=== PATIENT | female | born 1995 | race Caucasian/White ===

== ENCOUNTER 2020-03-10 16:06 | Outpatient (CLI) | payer OTHER, SELFPAY ==
--- NOTE | 2020-03-10 | XRR_ITS ---
PROCEDURE INFORMATION: Exam: XR Chest, 2 Views Exam date and time: 03/10/2020 4:26 PM Age: 25 years old Clinical indication: Patient HX: Cough since October; Additional info: Chronic cough TECHNIQUE: Imaging protocol: XR of the chest Views: 2 views. COMPARISON: No relevant prior studies available. FINDINGS: Lungs: Unremarkable. No consolidation. Pleural space: Unremarkable. No pleural effusion. No pneumothorax. Heart/Mediastinum: Unremarkable. No cardiomegaly. Bones/joints: Unremarkable. XR/XR chest 2V* [id number] IMPRESSION: No acute findings.
== END 2020-03-10 16:07 | disposition home or self-care (01) ==
LOC: RAD 16:10
PROVIDERS: PCP Family Medicine; Visit Provider Family Medicine
DX: R05 Cough (principal)
CPT/HCPCS: 71046

== ENCOUNTER 2020-03-18 10:51 | Outpatient (CLI) | payer OTHER, SELFPAY ==
[2020-03-18 11:42] LABS: Basophils # 0.1 10^3/uL (0.0-0.1); Basophils % 0.8 %; Eosinophils # 0.3 10^3/uL (0.0-0.8); Eosinophils % 4.8 %; Hematocrit 42.6 % (37.0-47.0); Hemoglobin 14.2 g/dL (11.5-15.3); Lymphocytes # 2.2 10^3/uL (0.8-4.8); Lymphocytes % 33.4 %; Mean Corpuscular HGB Conc 33.3 g/dL (30.0-36.0); Mean Corpuscular Hemoglobin 32.1 pg (28.0-34.0); Mean Corpuscular Volume 96.4 fL (81-99); Monocytes # 0.4 10^3/uL (0.2-0.9); Monocytes % 5.5 %; Neutrophils # 3.6 10^3/uL (1.8-7.7); Neutrophils % 55.2 %; Nucleated Red Blood Cells % 0 %; Platelet Count 225 10^3/cmm (130-400); Red Blood Count 4.42 10^6/uL (4.1-5.3); Red Cell Distribution Width 11.5 % (12.1-15.1); White Blood Count 6.5 10^3/uL (4.0-10.0)
[2020-03-19 18:11] LABS: Alternaria Alternata (M6) Ige <0.10 kU/L; Alternaria Class 0; Cat Dander (E1) Ige 8.05 kU/L; Cat Dander Class 3; Common Ragweed (Short) (W1) Ig 1.56 kU/L; D. Farinae Class 2; Dermatophagoides Class 1; Dermatophagoides Farinae (D2) 0.72 kU/L; Dermatophagoides Pteronyssinus 0.62 kU/L; Dog Dander (E5) Ige 7.49 kU/L; Dog Dander Class 3; Elm (T8) Ige <0.10 kU/L; Elm Class 0; English Plantain (W9) Ige 2.04 kU/L; English Plantain Class 2; House Dust (Greer) (H1) Ige 3.99 kU/L; House Dust Class 3; Immunoglobulin E 89 kU/L (<OR=114); Lamb'S Quarters (Goose Foot) <0.10 kU/L; Lamb'S Quarters Class 0; Maple Class 0/1; Mucor Racemosus Class 0; Oak Class 1; Penicillium Class 0; Penicillium Notatum (M1) Ige <0.10 kU/L; Ragweeed Class 2; Rough Marsh Elder (W16) Ige 0.22 kU/L; Rough Marsh Elder Class 0/1
[2020-03-19 18:41] LABS: Immunoglobulin E 97 kU/L (<OR=114)
[2020-03-22 17:27] LABS: Aspergillus Fumigatus, Igg Ab, 27.2 mg/L (<=102)
[2020-03-22 17:57] LABS: Bermuda Class 0/1; Bermuda Grass (G2) Ige 0.11 kU/L; Johnson Grass (G10) Ige 0.12 kU/L; Johnson Grass Cl 0/1; June Grass Class 0; June Grass(Kentucky Blue) (G8) <0.10 kU/L; Meadow Fescue (G4) Ige <0.10 kU/L; Meadow Fescue Class 0; Orchard Grass (Cocksfoot) (G3) <0.10 kU/L; Perennial Rye Grass (G5) Ige <0.10 kU/L; Perennial Rye Grass Class 0; Sweet Vernal Class 0/1; Sweet Vernal Grass (G1) Ige 0.12 kU/L; Timothy Grass (G6) Ige <0.10 kU/L; Timothy Grass Class 0
== END 2020-03-18 10:52 | disposition home or self-care (01) ==
LOC: LAB 10:53
PROVIDERS: PCP Family Medicine; Visit Provider Internal Medicine Critical Care Medicine
DX: R06.02 Shortness of breath (principal); J45.909 Unspecified asthma, uncomplicated
CPT/HCPCS: 36415; 82785; 85025; 86003

== ENCOUNTER 2020-05-17 10:39 | Outpatient (CLI) | payer OTHER, SELFPAY ==
--- NOTE | 2020-05-17 12:02 | PFTS_ITS ---
Date of Study:05/17/20 Date of Dictation: MECHANICS: Forced vital capacity (FVC) is normal. Forced expiratory volume in one second (FEV1) is normal. FEV1/FVC is normal. FLOW VOLUME LOOP: Normal. LUNG VOLUMES: Total lung capacity (TLC) is normal. Residual volume (RV) is normal. DIFFUSING CAPACITY FOR CARBON MONOXIDE: Increased. INTERPRETATION: The spirometry is normal. Lung volumes are normal. Gas exchange (DLCO) is elevated which could be seen in patients with asthma. MTDD
== END 2020-05-17 10:40 | disposition home or self-care (01) ==
LOC: RT 10:40
PROVIDERS: PCP Family Medicine; Visit Provider Internal Medicine Critical Care Medicine
DX: J45.909 Unspecified asthma, uncomplicated (principal)
CPT/HCPCS: 94010; 94726; 94729

== ENCOUNTER 2020-07-29 13:29 | Outpatient (CLI) | payer OTHER, SELFPAY ==
--- NOTE | 2020-07-29 13:38 | USCV_ITS ---
Miladis Vasquez Age: 25 Gender: F : 1995 Exam Date: 07/29/2020 13:58 Ordering Phys: Ger Santiago MD Technologist: Janeth Marte Exam Location: [facility] [place] Indication: swelling at ankle HISTORY: Lower extremity swelling. PROCEDURES: Venous duplex imaging was performed in only the left lower extremity. The following venous structures were evaluated: common femoral vein, profunda vein, proximal portion of the greater saphenous vein, superficial femoral vein, and the popliteal vein. In addition, the posterior tibial and peroneal trunk were evaluated. Serial compression, augmentation maneuvers, and spectral Doppler flow evaluation were performed. FINDINGS: Normal 2-D Doppler and augmentation and compressibility throughout the lower extremity venous structures. Additional imaging through the proximal calf veins also reveals no thrombus. Limited evaluation of the greater saphenous vein is patent with no thrombus.. CONCLUSIONS No DVT left lower extremity. Dr. Debra Fuentes DO (Electronically Signed) Final Date: 29 July 2020 15:38 S
== END 2020-07-29 13:30 | disposition home or self-care (01) ==
LOC: RAD 13:31
PROVIDERS: PCP Family Medicine; Visit Provider Family Medicine
DX: M79.89 Other specified soft tissue disorders (principal)
CPT/HCPCS: 93971

== ENCOUNTER → 2020-12-04 15:37 | Outpatient (BNVA) | payer OTHER, SELFPAY | PROVIDERS: PCP Family Medicine; Visit Provider Nurse Practitioner Family | DX: H93.90 Unspecified disorder of ear, unspecified ear (principal); J30.9 Allergic rhinitis, unspecified | CPT/HCPCS: 87071; 87880 ==

== ENCOUNTER → 2022-07-25 15:56 | Outpatient (BNVA) | payer OTHER, SELFPAY | PROVIDERS: PCP Family Medicine; Visit Provider Family Medicine | DX: N92.1 Excessive and frequent menstruation with irregular cycle (principal); R10.2 Pelvic and perineal pain; Z51.81 Encounter for therapeutic drug level monitoring | CPT/HCPCS: 80053; 84439; 84443; 85025 ==

== ENCOUNTER → 2022-08-18 07:54 | Outpatient (BNVA) | payer OTHER, SELFPAY | PROVIDERS: PCP Family Medicine; Visit Provider Family Medicine | DX: N92.1 Excessive and frequent menstruation with irregular cycle (principal); R10.2 Pelvic and perineal pain | CPT/HCPCS: 76830; 76856 ==

== ENCOUNTER 2022-12-07 19:20 | Emergency (ER) | payer OTHER, SELFPAY ==
[2022-12-07 19:28] VITALS: BP 121/83; PULSE 112; RESP 14; TEMP 36.9; O2SAT 91
[2022-12-07 19:31] VITALS: BP 128/87; RESP 24; O2SAT 91
--- NOTE | 2022-12-07 19:34 | ED_ITS ---
HPI - SOB/Dyspnea General: Chief Complaint: Shortness of Breath/Dyspnea Stated Complaint: sob Time Seen by Provider: 12/07/22 19:33 History of Present Illness: HPI Narrative: 27-year-old female comes in today with worsening symptoms of asthma. Patient has been having increasing spells over the last [address] Santiago and was started on Flovent and just started it this morning 2 puffs. This evening patient had worsening difficulty catching her breath that her albuterol inhaler was not helpful. Patient appears nontoxic. Patient does have increased effort with breathing. Patient is noted to have tripoding. Patient has no other chronic medical problems except related to abnormal periods. Associated symptoms: Deny chest pain, fever(s), nausea or vomiting Review of Systems Const: Denies: fever(s) ENMT: Denies: mouth pain Card: Denies: chest pain Resp: Reports: dyspnea and wheezing GI: Denies: nausea, vomiting, diarrhea or constipation Musc: Denies: neck pain Skin/Breast: Denies: rash PFSH ED PFSH: Medical History Asthma Surgical History H/O colonoscopy Hx of laparoscopy Family History Other CAD (coronary artery disease) Diabetes Social History Smoking and tobacco status: never smoked Alcohol intake: current Alcohol intake frequency: holidays/special occasions only Lives independently: Yes Household members: spouse Marital status: Current occupational status: employed Current occupation: Teacher Current occupational exposures/hazards: No Current gender identity: Female Physical Exam Const: COMMON NORMALS: alert HENMT: COMMON NORMALS: normocephalic and Normal external nose present HEAD & SCALP: normocephalic NOSE: Normal external nose present MOUTH: Normal oral and palatal mucosa present Neck/C-Spine: COMMON NORMALS: full ROM Resp: COMMON NORMALS: normal respiratory effort and clear to auscultation bilaterally AUSCULTATION: clear to auscultation bilaterally Cardio: COMMON NORMALS: regular rate and regular rhythm RATE: regular rate RHYTHM: regular rhythm GI: COMMON NORMALS: non-tender Back/Pelvis: COMMON NORMALS: thoracic and lumbar spine normal to inspection Extremity: COMMON NORMALS: normal to inspection Neuro: SENSORIUM/ORIENTATION: Yes alert Skin: COMMON NORMALS: turgor normal GENERAL SKIN EXAM: turgor normal Course ED course: 2102, patient is much improved and would like to go home. Lungs continue to have some wheezing but better air movement throughout. Patient is able to speak in full sentences. Vital Signs: Vital signs: Vital Signs Temperature 98.4 F 12/07/22 19:28 Pulse Rate 112 H 12/07/22 20:10 Respiratory Rate 20 H 12/07/22 20:10 Blood Pressure 128/87 12/07/22 19:31 Pulse Oximetry 94 12/07/22 20:10 Oxygen Delivery Me thod 12/07/22 20:10 Oxygen Flow Rate 2 12/07/22 20:08 MDM - SOB/Dyspnea Medical Decision Making 27-year-old female comes in today for complaints of increasing shortness of breath and worsening asthma. On exam lungs were decreased aeration throughout with wheezing. Skin was warm and dry. No fever. Patient reports that last 2 to 3 months she has had increasing shortness of breath. No edema is noted in the extremities. Vital signs are normal. Differential diagnosis includes not limited to exacerbation of asthma, respiratory failure, pneumothorax. Chest x- ray was unremarkable. For asthma exacerbation with 500 mL of saline, 2 g of magnesium sulfate, 125 of Solu-Medrol, 5 mg of albuterol inhaled, and 0.5 mg of ipratropium. Patient had significant improvement air movement throughout lung gil. Patient be continued on oral prednisone along with her routine medications. Patient reported understanding of care plan and need for follow-up or return to the ER. Lab Data Labs/Radiology: Radiology Impressions Chest X-Ray 12/07/22 19:38 IMPRESSION: No acute findings. Discharge Plan Discharge Patient Disposition: Home Clinical Impression: Asthma with exacerbation Qualifiers: Asthma severity: moderate Asthma persistence: persistent Qualified Code(s): J45.41 - Moderate persistent asthma with (acute) exacerbation Condition: Stable Prescriptions: New prednisone 20 mg tablet 60 mg PO DAILY 5 Days Qty: 30 0RF No Action epinephrine 0.3 mg/0.3 mL syringe 0.3 mg IM Q10M PRN Rx Instructions: for 2 doses fluticasone propionate [Flonase Allergy Relief] 50 mcg/actuation spray,suspension 1 spray INTRANASAL BID 30 Days Qty: 16 3RF Rx Instructions: administer into each nostril azelastine 137 mcg (0.1 %) aerosol,spray 1 spray intranasal BID 30 Days Qty: 30 6RF Rx Instructions: administer into each nostril fluticasone propionate [Flovent HFA] 110 mcg/actuation HFA aerosol inhaler 2 puff inhalation BID Qty: 12 3RF albuterol sulfate [ProAir HFA] 90 mcg/actuation HFA aerosol inhaler 2 puff INHALATION Q6H PRN (Reason: shortness of breath or wheezing) Qty: 8.5 3RF Discharge Orders: Discharge ED (Routine); Ordered 12/07/22 Ordered By: Adis Lieberman Referrals: Ger Santiago MD [Primary Care Provider] - Discharge Diet: Usual diet Discharge Activity: Increase activity as tolerated Patient Instructions: Asthma (ED) Activity Restrictions/Additional Instructions: Home and rest. Drink plenty of fluids. Take medication, 60 mg prednisone daily for the next 5 days. Follow-up with primary care in 3 to 5 days for recheck. Return to emergency department for worsening symptoms. Continue with inhalers, nebulizer solution as directed. Stand Alone Forms: Work/School Release Coding Level of Care Code ED Cash Register Operator for [employer]
--- NOTE | 2022-12-07 19:38 | XRR_ITS ---
PROCEDURE INFORMATION: Exam: XR Chest Exam date and time: 12/07/2022 7:43 PM Age: 27 years old Clinical indication: Cough and shortness of breath and wheezing; Additional info: Asthma TECHNIQUE: Imaging protocol: Radiologic exam of the chest. Views: 1 view. COMPARISON: CR XR chest 2V* [id number] 03/10/2020 4:22 PM FINDINGS: Lungs: Unremarkable. No consolidation. Pleural spaces: Unremarkable. No pleural effusion. No pneumothorax. Heart/Mediastinum: Unremarkable. No cardiomegaly. Bones/joints: Unremarkable. XR/XR chest 1V portable [id number] IMPRESSION: No acute findings.
[2022-12-07] MEDS: sodium chloride 0.9% 500 ML 999 ML IV (19:53)
[2022-12-07] MEDS: magnesium sulfate premix 2 GM/50 ML PIGGYBACK IV (19:54)
[2022-12-07 20:08] VITALS: PULSE 110; RESP 22; O2SAT 91
[2022-12-07] MEDS: albuterol 2.5 mg/3 mL Neb INHALATION (20:09)
[2022-12-07] MEDS: ipratropium-albuterol 3 mL Neb INHALATION (20:09)
[2022-12-07 20:10] VITALS: PULSE 112; RESP 20; O2SAT 94
[2022-12-07] MEDS: predniSONE 20 mg Tablet 40 MG PO (21:17)
[2022-12-07 21:24] VITALS: BP 119/75; PULSE 98; RESP 18; O2SAT 92
== END 2022-12-07 21:26 | disposition home or self-care (01) ==
PROVIDERS: Emergency Provider Nurse Practitioner Family; PCP Family Medicine
DX: J45.41 Moderate persistent asthma with (acute) exacerbation (principal)
CPT/HCPCS: 71045; 94640; 96365; 96375; 99284; J2930; J3475; J7040; J7512; J7613

== ENCOUNTER → 2023-06-19 15:17 | Outpatient (BNVA) | payer OTHER, SELFPAY | PROVIDERS: PCP Family Medicine; Visit Provider Obstetrics & Gynecology | DX: R10.2 Pelvic and perineal pain (principal) | CPT/HCPCS: 76830 ==

== ENCOUNTER → 2023-09-13 16:05 | Outpatient (BNVA) | payer OTHER, SELFPAY | PROVIDERS: PCP Family Medicine; Visit Provider Obstetrics & Gynecology | DX: Z32.00 Encounter for pregnancy test, result unknown (principal) | CPT/HCPCS: 81025 ==

== ENCOUNTER → 2023-09-18 16:14 | Outpatient (BNVA) | payer OTHER, SELFPAY | PROVIDERS: PCP Family Medicine; Visit Provider Obstetrics & Gynecology | DX: N91.5 Oligomenorrhea, unspecified (principal); Z79.899 Other long term (current) drug therapy | CPT/HCPCS: 83001; 84146; 84443; 84702; 85025 ==

== ENCOUNTER → 2023-09-25 14:26 | Outpatient (BNVA) | payer OTHER, SELFPAY | PROVIDERS: PCP Family Medicine; Visit Provider Obstetrics & Gynecology | DX: R10.2 Pelvic and perineal pain (principal) | CPT/HCPCS: 76830 ==

== ENCOUNTER → 2024-01-01 12:33 | Outpatient (BNVA) | payer OTHER, SELFPAY | PROVIDERS: PCP Family Medicine; Visit Provider Family Medicine | DX: L30.9 Dermatitis, unspecified (principal); R21 Rash and other nonspecific skin eruption; R07.9 Chest pain, unspecified; M25.549 Pain in joints of unspecified hand | CPT/HCPCS: 85651; 86038; 86141; 86431 ==

== ENCOUNTER 2024-04-21 08:00 | Outpatient (CLI) | payer OTHER, SELFPAY | END 2024-04-21 08:01 | disposition home or self-care (01) | LOC: RAD 06-06 07:46 | PROVIDERS: PCP Family Medicine; Visit Provider Clinical Nurse Specialist Adult Health | DX: M53.3 Sacrococcygeal disorders, not elsewhere classified (principal) | CPT/HCPCS: 73502 ==

== ENCOUNTER → 2024-10-27 16:40 | Outpatient (BNVA) | payer OTHER, SELFPAY | PROVIDERS: PCP Family Medicine; Visit Provider Family Medicine | DX: Z00.00 Encounter for general adult medical examination without abnormal findings (principal) | CPT/HCPCS: 87624 ==

== ENCOUNTER → 2024-10-28 09:18 | Outpatient (BNVA) | payer OTHER, SELFPAY | PROVIDERS: PCP Family Medicine; Visit Provider Family Medicine | DX: E53.8 Deficiency of other specified B group vitamins (principal); Z00.00 Encounter for general adult medical examination without abnormal findings; D64.9 Anemia, unspecified; E03.9 Hypothyroidism, unspecified; Z13.220 Encounter for screening for lipoid disorders; Z13.1 Encounter for screening for diabetes mellitus; Z51.81 Encounter for therapeutic drug level monitoring; E55.9 Vitamin D deficiency, unspecified | CPT/HCPCS: 80053; 80061; 82306; 82607; 82728; 83036; 83550; 84439; 84443; 85025 ==

== ENCOUNTER → 2024-11-17 15:21 | Outpatient (BNVA) | payer OTHER, SELFPAY | PROVIDERS: PCP Family Medicine; Visit Provider Family Medicine | DX: R10.13 Epigastric pain (principal); Z51.81 Encounter for therapeutic drug level monitoring; D64.9 Anemia, unspecified; Z00.00 Encounter for general adult medical examination without abnormal findings | CPT/HCPCS: 80053; 83540; 83690; 85025; 86141 ==

== ENCOUNTER 2025-01-05 06:17 | Outpatient (CLI) | payer OTHER, SELFPAY ==
--- NOTE | 2025-01-05 06:30 | US_ITS ---
WS: [id number] RIGHT UPPER QUADRANT ULTRASOUND HISTORY: Right upper quadrant pain COMPARISON: 12/03/2017 Liver: 16.1 cm in length. Normal size liver with coarse echotexture. Nonvisualization of the portal triads. The entire liver is not very well visualized. No intrahepatic duct dilatation. Portal Vein: Normal hepatopetal flow with monophasic waveform. Gallbladder: Normally distended gallbladder with no stones or wall thickening. CBD: 0.6 cm Pancreas: Not visualized. Right kidney: 11.7 cm in length. Normal size and echogenicity. No hydronephrosis or mass. Aorta and IVC: Unremarkable abdominal aorta and IVC. No ascites. US/US abdomen limited [id number] IMPRESSION: 1. Negative gallbladder. 2. Technically limited RIGHT upper quadrant ultrasound. 3. Hepatic steatosis without hepatomegaly. 4. Common bile duct is top normal size. 5. No interval change since 12/03/2017
== END 2025-01-05 06:18 | disposition home or self-care (01) ==
PROVIDERS: PCP Family Medicine; Visit Provider Family Medicine
DX: R10.9 Unspecified abdominal pain (principal); K76.0 Fatty (change of) liver, not elsewhere classified
CPT/HCPCS: 76705

== ENCOUNTER 2025-05-07 11:08 | Outpatient (CLI) | payer BC, SELFPAY ==
--- NOTE | 2025-05-07 11:21 | XR_ITS ---
WS: [id number] Right wrist, AP and lateral views, 05/07/2025 Clinical Data: Right wrist pain after fall Comparison: None. Findings: No fractures or dislocations are seen. The carpal bones are intact. There is no soft tissue swelling. The distal radius and ulna are not remarkable. XR/XR wrist RT 2V [id number] Impression: Negative right wrist.
== END 2025-05-07 11:09 | disposition home or self-care (01) ==
LOC: RAD 11:09
PROVIDERS: PCP Family Medicine; Visit Provider Family Medicine
DX: M25.531 Pain in right wrist (principal)
CPT/HCPCS: 73100

== ENCOUNTER 2025-05-19 07:44 | Outpatient (CLI) | payer BC, SELFPAY ==
--- NOTE | 2025-05-19 08:00 | NM_ITS ---
WS: [id number] NUCLEAR MEDICINE HIDA SCAN WITH GALLBLADDER EJECTION FRACTION HISTORY: Nausea with eating foods with epigastric pain COMPARISON: 06/10/2010, ultrasound 01/05/2025 TECHNIQUE: The patient was intravenously injected with 7.8 mCi of TC99m Mebrofenin. Immediate imaging over the right upper quadrant was followed by 5 minute image and additional images for a total of 60 minutes. Normal uptake of radiotracer throughout the liver. Activity identified in the gallbladder at 5 minutes and well distended by 60 minutes. Activity in the proximal small bowel was seen by 10 minutes. Good washout of the radiotracer from the liver by 60 minutes. The patient then drank 8 ounces of Ensure Plus. Ejection fraction at 60 minutes was 94%. Normal GB ejection fraction is 35-75%. Post fatty meal symptoms: None. NM/NM hepatobiliary w phar* [id number] IMPRESSION: 1. Normal HIDA scan. 2. Normal gallbladder ejection fraction.
== END 2025-05-19 07:45 | disposition home or self-care (01) ==
LOC: RAD 07:47
PROVIDERS: PCP Family Medicine; Visit Provider Family Medicine
DX: R10.13 Epigastric pain (principal); R11.0 Nausea
CPT/HCPCS: 78227; A9537

== ENCOUNTER 2025-05-20 07:33 | Day surgery (SDC) | payer BC, SELFPAY ==
[2025-05-20 07:50] VITALS: BP 132/84; PULSE 83; RESP 18; TEMP 36.4; O2SAT 96; BMI 41.9
[2025-05-20 07:54] LABS: OR HCG Qualitative Urine Negative (Negative)
--- NOTE | 2025-05-20 08:12 | W.PM.OPSUD ---
Surgery/Procedure H&P Update DATE OF PROCEDURE: May 20, 2025 DATE H&P PERFORMED: 05/13/25 H&P UPDATE INFORMATION: I have reviewed H&P completed within last 30 days, I have examined patient prior to procedure, No changes to prior documentation, H&P is in [facility] EMR on date indicated and Risks and benefits of the procedure reviewed PLANNED PROCEDURE: Operation Date: 05/20/25 09:00 Proposed Procedures p EGD EGD with Biopsy 76615 K21.9(Not Applicable) - Felice Grover MD
--- NOTE | 2025-05-20 08:23 | P.ANESASSM_ITS ---
Pre-Anesthetic Assessment Height/Weight: Height 1.68 m Weight 117.934 kg Temp Pulse Resp BP Pulse Ox O2 Del Method 97.6 F 83 18 132/84 96 Room Air 05/20/25 07:50 05/20/25 07:50 05/20/25 07:50 05/20/25 07:50 05/20/25 07:50 05/20/25 07:50 Operation Date: 05/20/25 09:00 Proposed Procedures p EGD EGD with Biopsy 40252 K21.9(Not Applicable) - Felice Grover MD Familial anesthetic complications: NOne Was Beta Saundra taken within 24 hours: N/A Was Clonidine taken within 24 hours: N/A Last intake: Intake Last Liquid Date 05/19/25 Last Liquid Time 22:50 Last Solid Date 05/19/25 Last Solid Time 22:50 Social No alcohol and No tobacco Exam alert, oriented x 3, clear to auscultation bilaterally and regular rate & rhythm Airway Mallampati: Class III Dentition: chipped Pulmonary Asthma GI Gastroesophageal Reflux Disease Metabolic Morbid Obesity Anesthetic Plan ASA status: 3 Anesthesia: MAC Risk of > 500 ml blood loss (7ml/kg in children): No Medications/Allergies Home Medications ?Medication ?Instructions ?Recorded ?Confirmed ?Last Taken ?Type albuterol sulfate 90 mcg/actuation 2 puff inhalation Q 6H PRN 12/05/22 05/18/25 Unknown Rx aerosol inhaler (ProAir HFA) shortness of breath or wh eezing #8.5 grams epinephrine 0.3 mg/0.3 mL 0.3 mg (0.3 mL) IM Q10M PRN 03/27/23 05/18/25 Unknown Rx injection syringe anaphylaxis #2 ea acetaminophen 325 mg capsule 325 mg PO Q4H PRN fever o r 11/13/23 05/18/25 Unknown Rx postoperative pain #60 caps ibuprofen 800 mg tablet 800 mg PO TID PRN pain #60 t abs 11/13/23 05/18/25 Unknown Rx sumatriptan succinate 25 mg tablet See Rx Instructions PO .COMPLEX 09/16/24 05/18/25 Unknown Rx PRN migraine pena #14 tabs copper 380 square mm intrauterine 1 device intrauterin e ONCE 10/27/24 05/18/25 05/18/25 History device (ParaGard T 380A) cholecalciferol (vitamin D3) 50 50 mcg PO DAILY #30 ca ps 11/06/24 05/18/25 05/17/25 Rx mcg (2,000 unit) capsule omeprazole 40 mg capsule,delayed 40 mg PO DAILY #30 ca ps 01/13/25 05/18/25 Unknown Rx release tirzepatide 2.5 mg/0.5 mL 2.5 mg (0.5 mL) SUBCUT Q7D # 2 mL 05/07/25 05/18/25 Unknown Rx subcutaneous pen injector (Mounjaro) fluticasone propionate 50 1 spray intranasal BID PRN 0 05/18/25 05/18/25 Unknown History mcg/actuation nasal Congestion spray,suspension (Flonase Allergy Relief) Allergies Allergy/AdvReac Type Severity Reaction Status Date / Time tree nut Allergy Severe ALGY-Anaphy Verified 05/18/25 09:21 laxis doxycycline Allergy Intermediate ALGY-Rash Verified 05/18/25 09:21 Current Medications Generic Name Dose Route Start Last Admin Trade Name Freq PRN Reason Stop Dose Admin Sodium Chloride 1,000 mls @ 15 mls/hr 05/20/25 07:36 05/20/25 07:57 Sodium Chloride 0.9% IV 05/21/25 07:35 15 mls/hr .Q24H PRN Administration COLONOSCOPY FLUIDS [facility] Anesthesia Medical History No pertinent past medical history neghx: htn,dm,thyroid,dvt/pe PCP: Dr. Santiago Asthma Surgical History History of laparoscopy (~11/13/23) Diagnostic laparoscopy with SULY for pelvic pain; Omental adhesions noted RUQ and freed. Performed by Robby at [facility]. H/O colonoscopy Hx of laparoscopy Family History Mother Diabetes Hypertension Grandfather Diabetes Grandmother Diabetes Other CAD (coronary artery disease) Denies family history of Colon cancer Ovarian cancer Heart disease Hyperlipidemia Breast cancer Uterine cancer Thyroid disease Stroke Social History Smoking and tobacco/nicotine status: never used tobacco/nicotine Alcohol intake: current Alcohol intake frequency: holidays/special occasions only Substance/Drug Use: never Current occupation: [employer] Reproductive History Date of last menstrual period: 04/21/25
[2025-05-20 09:27] VITALS: BP 104/81; PULSE 83; RESP 10; TEMP 36.2; O2SAT 95
[2025-05-20 09:40] VITALS: BP 112/69; PULSE 80; RESP 16; O2SAT 97
[2025-05-20 09:52] VITALS: BP 109/73; PULSE 77; RESP 18; O2SAT 99
--- NOTE | 2025-05-20 09:55 | ANE.PACU2 ---
Inpatient post-anesthesia follow up: Airway intact: Yes Vital signs: Temperature 97.1 F Pulse Rate 77 Respiratory Rate 18 Blood Pressure 109/73 Pulse Oximetry 99 Oxygen Delivery Me thod Room Air Oxygen Flow Rate Fraction of Inspir ed Oxygen Hydration adequate: Yes Nausea and vomiting: No Pain level: 1 Mental status: Baseline
== END 2025-05-20 09:56 | disposition home or self-care (01) ==
PROVIDERS: Anesthesiology; PCP Family Medicine; Visit Provider Surgery
PROC: 0DJ08ZZ Inspection of Upper Intestinal Tract, Via Natural or Artificial Opening Endoscopic (ICD-10-PCS; principal; 2025-05-20 09:00)
DX: K21.00 Gastro-esophageal reflux disease with esophagitis, without bleeding (principal); K29.50 Unspecified chronic gastritis without bleeding; K44.9 Diaphragmatic hernia without obstruction or gangrene; J45.909 Unspecified asthma, uncomplicated; E66.01 Morbid (severe) obesity due to excess calories; Z68.41 Body mass index [BMI] 40.0-44.9, adult
CPT/HCPCS: 43239; 81025; 88305; 88342; J2250; J2704; J7030; J9999

== ENCOUNTER 2025-07-06 07:38 | Day surgery (SDC) | payer BC, SELFPAY ==
[2025-07-06] VITALS (15 sets, daily range): BP systolic 115–148; BP diastolic 70–96; PULSE 59–106; RESP 10–30; TEMP 36.1–36.7; O2SAT 91–99; BMI 41.1
--- NOTE | 2025-07-06 08:06 | P.ANESASSM_ITS ---
Pre-Anesthetic Assessment Height/Weight: Height 1.68 m Weight 115.666 kg Operation Date: 07/06/25 09:20 Proposed Procedures p Laparoscopic Possible Open Cholecystectomy 59513 K82.8(Not Applicable) - Felice Grover MD Familial anesthetic complications: None Was Beta Saundra taken within 24 hours: N/A Was Clonidine taken within 24 hours: N/A Last intake: > 8hrs Social No alcohol and No tobacco Exam alert, oriented x 3, clear to auscultation bilaterally and regular rate & rhythm Airway Mallampati: Class III Dentition: chipped and full Pulmonary Asthma Metabolic Morbid Obesity Anesthetic Plan ASA status: 3 Anesthesia: General Risk of > 500 ml blood loss (7ml/kg in children): No Medications/Allergies Home Medications ?Medication ?Instructions ?Recorded ?Confirmed ?Last Taken ?Type albuterol sulfate 90 mcg/actuation 2 puff inhalation Q 6H PRN 12/05/22 07/02/25 Unknown Rx aerosol inhaler (ProAir HFA) shortness of breath or wh eezing #8.5 grams epinephrine 0.3 mg/0.3 mL 0.3 mg (0.3 mL) IM Q10M PRN 03/27/23 07/02/25 Unknown Rx injection syringe anaphylaxis #2 ea acetaminophen 325 mg capsule 325 mg PO Q4H PRN fever o r 11/13/23 07/06/25 06/30/25 Rx postoperative pain #60 caps ibuprofen 800 mg tablet 800 mg PO TID PRN pain #60 t abs 11/13/23 07/02/25 07/01/25 Rx copper 380 square mm intrauterine 1 device intrauterin e ONCE 10/27/24 07/02/25 05/18/25 History device (ParaGard T 380A) cholecalciferol (vitamin D3) 50 50 mcg PO DAILY #30 ca ps 11/06/24 07/02/25 06/18/25 Rx mcg (2,000 unit) capsule omeprazole 40 mg capsule,delayed 40 mg PO DAILY #30 ca ps 01/13/25 07/02/25 Unknown Rx release fluticasone propionate 50 1 spray intranasal BID PRN 0 05/18/25 07/02/25 Unknown History mcg/actuation nasal Congestion spray,suspension (Flonase Allergy Relief) sumatriptan succinate 25 mg tablet 25 mg PO PRN PRN mi graine pena 07/02/25 07/02/25 07/01/25 History Allergies Allergy/AdvReac Type Severity Reaction Status Date / Time tree nut Allergy Severe ALGY-Anaphy Verified 06/10/25 14:40 laxis doxycycline Allergy Intermediate ALGY-Rash Verified 06/10/25 14:40 [facility] Anesthesia Medical History No pertinent past medical history neghx: htn,dm,thyroid,dvt/pe PCP: Dr. Santiago Asthma Surgical History History of laparoscopy (~11/13/23) Diagnostic laparoscopy with SULY for pelvic pain; Omental adhesions noted RUQ and freed. Performed by Robby at [facility]. 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
[2025-07-06 08:15] LABS: OR HCG Qualitative Urine Negative (Negative)
--- NOTE | 2025-07-06 09:23 | W.PM.OPSUD ---
Surgery/Procedure H&P Update DATE OF PROCEDURE: July 06, 2025 DATE H&P PERFORMED: 06/10/25 H&P UPDATE INFORMATION: I have reviewed H&P completed within last 30 days, I have examined patient prior to procedure, No changes to prior documentation, H&P is in [facility] EMR on date indicated and Risks and benefits of the procedure reviewed PLANNED PROCEDURE: Operation Date: 07/06/25 09:20 Proposed Procedures p Laparoscopic Possible Open Cholecystectomy 11502 K82.8(Not Applicable) - Felice Grover MD
[2025-07-06] MEDS: ceFAZolin 2,000 mg SDV 2000 MG IVP (10:20)
[2025-07-06] MEDS: BUPivacaine 0.25% INJ 10 mL INJECTION (11:52)
[2025-07-06] MEDS: lidocaine-epi 1% 20 mL INJ INJECTION (11:52)
--- NOTE | 2025-07-06 12:10 | PM.OP ---
Operative Report Date of procedure: July 06, 2025 Pre-op diagnosis: Biliary dyskinesia Post-op diagnosis: same Post-op findings: Normal biliary anatomy, intrahepatic gallbladder Procedure done: Laparoscopic cholecystectomy Implants: none Specimens removed/disposition: Gallblader Surgeon: Felice Grover MD Vp Of Digital Marketing: FRANCO OR Staff Estimated blood loss: 10 Complications: none Brief History: 30-year-old female with chronic abdominal pain symptoms regarding biliary colic HIDA scan showed a hyperdynamic gallbladder. After discussion of risk benefits with side to proceed to the OR for laparoscopic possible open cholecystectomy Procedure: Patient was brought into the OR, he was placed in a supine position. General anesthesia was given. The abdomen was prepped and draped in the usual sterile fashion. A timeout was conducted. I accessed the abdomen via a 5 mm Optiview port in the left upper quadrant. Initial pneumoperitoneum was obtained and no evidence of visceral injury during entry was noted. At 12 mm trocar was placed in the supraumbilical position under direct visualization. Additional 5 mm trocars were placed in the epigastrium right upper quadrant and right flank under direct visualization. The gallbladder was grasped from the fundus and retracted cephalad, I then grasped the infundibulum and retracted in the inferolateral direction exposing the hepatocystic triangle. The peritoneum anterior to the hepatocystic triangle was opened with electrocautery, I carried this opening in the medial and lateral direction to the edges of the liver and then on the sides of the gallbladder to allow for better exposure. With careful blunt dissection as well as electrocautery I was able to encircle the cystic duct and artery, I also elevated lower third of the gallbladder from the liver bed, thus creating a critical view of safety. The cystic duct and artery were double clipped proximally and single clipped distally and transected. The gallbladder was removed from the liver bed using electrocautery. a small hole was made in the gallblader during removal and the bilious contents were suctioned. The gallbladder was retrieved in an Endo Catch bag via the umbilical trocar site. The liver bed and clips were inspected the area was hemostatic, there was no evidence of bile leak the clips appeared to be in good position. The liver bed was irrigated and suctioned. The umbilical trocar was removed and umbilical trocar site was closed with a 0 Vicryl Earl-Tanya suture passer under direct visualization. The epigastrium right upper quadrant right flank trocars were removed under direct visualization, the left upper quadrant trocar was used to evacuate the pneumoperitoneum and subsequently removed. Local anesthesia was infiltrated. Hemostasis was achieved from the trocar sites. The wounds were closed in layers using #3-0 Vicryl for the subcutaneous tissue #4 Monocryl for the skin. At the end of the procedure all counts were correct, the patient tolerated well the procedure was transferred to the PACU in stable condition.
[2025-07-06] MEDS: fentaNYL 50 mcg/mL INJ 2mL IVP ×2 (12:31→12:39)
[2025-07-06] MEDS: ondansetron 2 mg/ML SDV 2 mL 4 MG IVP ×2 (12:39→13:15)
--- NOTE | 2025-07-06 15:00 | ANE.PACU2 ---
Inpatient post-anesthesia follow up: Airway intact: Yes Vital signs: Temperature 97.9 F Pulse Rate 72 Respiratory Rate 16 Blood Pressure 119/72 Pulse Oximetry 96 Oxygen Delivery Me thod Room Air Oxygen Flow Rate Fraction of Inspir ed Oxygen Hydration adequate: Yes Nausea and vomiting: No Pain level: 1 Mental status: Baseline
== END 2025-07-06 15:00 | disposition home or self-care (01) ==
PROVIDERS: Anesthesiology; PCP Family Medicine; Visit Provider Surgery
PROC: 0FT44ZZ Resection of Gallbladder, Percutaneous Endoscopic Approach (ICD-10-PCS; CPT 47562; principal; 2025-07-06 09:10)
DX: K81.1 Chronic cholecystitis (principal); J45.909 Unspecified asthma, uncomplicated; E66.01 Morbid (severe) obesity due to excess calories; Z68.41 Body mass index [BMI] 40.0-44.9, adult; K21.9 Gastro-esophageal reflux disease without esophagitis
CPT/HCPCS: 47562; 81025; 88304; A4216; J0690; J1100; J1171; J2250; J2371; J2405; J2704; J3010; J3490; J7030; J9999

== ENCOUNTER 2025-09-29 15:21 | Outpatient (CLI) | payer BC, SELFPAY ==
--- NOTE | 2025-09-29 15:33 | XRR_ITS ---
PROCEDURE INFORMATION: Exam: XR Left Knee Exam date and time: 09/29/2025 3:41 PM Age: 30 years old Clinical indication: Injury or trauma; Fall; Blunt trauma; Left; Injury date: 09/29/25; Injury details: Lt knee pain PT fell today TECHNIQUE: Imaging protocol: Radiologic exam of the left knee. Views: 3 views. COMPARISON: l spine FINDINGS: Bones/joints: No acute osseous abnormality. Trace suprapatellar effusion. Incidentally noted is a fabella. Soft tissues: Normal. XR/XR knee LT 3V* [id number] IMPRESSION: No acute findings.
== END 2025-09-29 15:22 | disposition home or self-care (01) ==
LOC: RAD 15:23
PROVIDERS: PCP Family Medicine; Visit Provider Family Medicine
DX: S86.819A Strain of other muscle(s) and tendon(s) at lower leg level, unspecified leg, initial encounter (principal); W19.XXXA Unspecified fall, initial encounter
CPT/HCPCS: 73562